=== PATIENT | female | born 1935 | race Caucasian/White ===

== ENCOUNTER 2017-06-29 21:41 | Inpatient (IN) | payer MEDICARE ==
[~2017-06-29] VITALS: Ht 152.4 cm; Wt 76.9 kg
[2017-06-29] MEDS ORDERED: SODIUM CHLORIDE 0.9% 1,000 ML IVB ONE (22:05)
[2017-06-29] MEDS ORDERED: ONDANSETRON HCL 4 MG/2 ML VIAL IV ONE (22:15)
[2017-06-29 22:24] LABS: Basophils # (auto) 0 uL; Basophils % (auto) 0.2 % (0.0-2.0); Eosinophils # (auto) 0 uL; Eosinophils % (auto) 0.2 % (0.0-7.0); Hematocrit 36.6 % (36.0-46.0); Hemoglobin 11.9 g/dL (12.2-16.2); Lymphocytes # (auto) 0.5 uL; Mean Corpuscular Hemoglobin 27.5 pg (28.0-32.0); Mean Corpuscular Hgb Conc. 32.4 g/dL (32.0-36.0); Mean Corpuscular Volume 84.8 fL (80.0-100.0); Monocytes # (auto) 0.3 uL; Monocytes % (auto) 5.2 % (0.0-12.0); Neutrophils # (auto) 5.4 uL; Neutrophils % (auto) 86.4 % (37.0-80.0); Nucleated Red Blood Cells % 0.1 %; Platelet Count (auto) 243 10^3/uL (140-450); Red Blood Cells 4.32 10^6/uL (4.0-5.20); Red Cell Distribution Width 17.9 % (11.8-14.3); White Blood Cell 6.2 10^3/uL (4.4-10.8)
[2017-06-29 22:37] LABS: Alanine Aminotransferase 28 U/L (13-56); Albumin 3.6 g/dL (3.4-5.0); Amylase 184 U/L (25-115); Anion Gap 11 (5-15); Aspartate Aminotransferase 30 U/L (15-37); BUN/Creatinine Ratio 10.9; Blood Urea Nitrogen 15 mg/dL (7-18); Calcium 9.6 mg/dL (8.5-10.1); Carbon Dioxide 23 mmol/L (21-32); Chloride 105 mmol/L (98-107); GFR African American 48 mL/min; GFR Non-African American 39 mL/min; Glucose 132 mg/dL (74-106); Magnesium 2.5 mg/dL (1.6-2.6); Potassium 3.9 mmol/L (3.5-5.1); Sodium 139 mmol/L (136-145)
[2017-06-29 22:40] LABS: INR 1.04 (0.9-1.15); Partial Thromboplastin Time 33.6 sec (22.64-33.71); Prothrombin Time 11.3 sec (9.37-12.3)
[2017-06-29 22:46] LABS: Alkaline Phosphatase 26 U/L (45-117); Bilirubin, Total 0.4 mg/dL (0.2-1.0); Lipase 4375 U/L (73-393); Total Protein 7.8 g/dL (6.4-8.2)
[2017-06-30 03:48] LABS: Urine WBC None Seen /hpf (0 - 5)
[2017-06-30 04:10] LABS: Urine Amorphous Crystal MANY /hpf (None Seen); Urine Bacteria FEW /hpf (None Seen); Urine Blood Negative /uL (Negative); Urine Specific Gravity 1.018 (1.001-1.035)
[2017-06-30] MEDS ORDERED: ONDANSETRON HCL 4 MG/2 ML VIAL IV PRN (05:30)
[2017-06-30] MEDS ORDERED: ACETAMINOPHEN 500 MG TAB PO PRN (05:30)
[2017-06-30] MEDS ORDERED: HYDROcodone-ACET 5/325MG TAB PO PRN (05:30)
[2017-06-30] MEDS ORDERED: MORPHINE SULFATE 4 MG/ML SYR/VIAL IV PRN (07:00)
[2017-06-30] MEDS: cefTRIAXone 1GM/10ml IVPUSH 10 ML IV SCH (09:32)
[2017-06-30] MEDS: metroNIDAZOLE 500MG/100ML 100 ML IV SCH ×2 (13:47→21:15)
[2017-06-30] MEDS: SODIUM CHLORIDE 0.9% 1,000 ML IV SCH (16:15)
[2017-06-30 17:39] VITALS: BP 178/71
[2017-06-30 22:00] VITALS: BP 157/74
[2017-07-01] MEDS: SODIUM CHLORIDE 0.9% 1,000 ML IV SCH ×3 (05:24→16:18)
[2017-07-01] MEDS: metroNIDAZOLE 500MG/100ML 100 ML IV SCH ×3 (05:25→22:17)
[2017-07-01 06:11] VITALS: BP 148/81
[2017-07-01 06:36] LABS: Basophils # (auto) 0 uL; Basophils % (auto) 0.6 % (0.0-2.0); Eosinophils # (auto) 0.1 uL; Eosinophils % (auto) 1.6 % (0.0-7.0); Hematocrit 34.7 % (36.0-46.0); Hemoglobin 11.1 g/dL (12.2-16.2); Lymphocytes # (auto) 0.8 uL; Mean Corpuscular Hemoglobin 27.3 pg (28.0-32.0); Mean Corpuscular Hgb Conc. 32.1 g/dL (32.0-36.0); Monocytes # (auto) 0.4 uL; Monocytes % (auto) 7.7 % (0.0-12.0); Neutrophils # (auto) 3.8 uL; Neutrophils % (auto) 75.1 % (37.0-80.0); Nucleated Red Blood Cells % 0.1 %; Platelet Count (auto) 197 10^3/uL (140-450); Red Blood Cells 4.08 10^6/uL (4.0-5.20); Red Cell Distribution Width 17.5 % (11.8-14.3); White Blood Cell 5.1 10^3/uL (4.4-10.8)
[2017-07-01 07:01] LABS: Albumin 3.1 g/dL (3.4-5.0); BUN/Creatinine Ratio 12.6; Bilirubin, Total 0.4 mg/dL (0.2-1.0); Calcium 8.1 mg/dL (8.5-10.1); Potassium 3.3 mmol/L (3.5-5.1)
[2017-07-01 08:00] VITALS: BP 161/77
[2017-07-01 09:00] VITALS: BP 161/77
[2017-07-01] MEDS: cefTRIAXone 1GM/10ml IVPUSH 10 ML IV SCH (09:37)
[2017-07-01] MEDS ORDERED: POTASSIUM CHL 20MEQ/100ML 100 ML IV ONE (10:15)
[2017-07-01 13:00] VITALS: BP 165/84
[2017-07-01 22:35] VITALS: BP 156/72
[2017-07-02] MEDS: SODIUM CHLORIDE 0.9% 1,000 ML IV SCH ×2 (00:25→08:48)
[2017-07-02 05:05] VITALS: BP 130/62
[2017-07-02] MEDS: metroNIDAZOLE 500MG/100ML 100 ML IV SCH ×2 (05:51→14:00)
[2017-07-02 06:36] LABS: Basophils # (auto) 0 uL; Basophils % (auto) 1.1 % (0.0-2.0); Eosinophils # (auto) 0.2 uL; Eosinophils % (auto) 3.8 % (0.0-7.0); Hemoglobin 10.7 g/dL (12.2-16.2); Lymphocytes # (auto) 0.7 uL; Lymphocytes % (auto) 16.7 % (10.0-50.0); Mean Corpuscular Hemoglobin 27.8 pg (28.0-32.0); Mean Corpuscular Hgb Conc. 32.6 g/dL (32.0-36.0); Mean Corpuscular Volume 85.5 fL (80.0-100.0); Monocytes # (auto) 0.4 uL; Monocytes % (auto) 9.4 % (0.0-12.0); Neutrophils # (auto) 2.8 uL; Platelet Count (auto) 179 10^3/uL (140-450); Red Blood Cells 3.86 10^6/uL (4.0-5.20); Red Cell Distribution Width 17.1 % (11.8-14.3); White Blood Cell 4.1 10^3/uL (4.4-10.8)
[2017-07-02 06:52] LABS: Potassium 3.4 mmol/L (3.5-5.1)
[2017-07-02 06:59] LABS: Albumin 2.7 g/dL (3.4-5.0); BUN/Creatinine Ratio 12.5
[2017-07-02 07:01] LABS: Bilirubin, Total 0.5 mg/dL (0.2-1.0); Total Protein 6.2 g/dL (6.4-8.2)
[2017-07-02 08:08] VITALS: BP 135/63
[2017-07-02] MEDS: cefTRIAXone 1GM/10ml IVPUSH 10 ML IV SCH (08:48)
[2017-07-02 11:55] VITALS: BP 157/86
== END 2017-07-02 14:02 | disposition home or self-care (01) | DRG 438 ==
LOC: ER 21:41 → OVERFLOW 21:42 → CENTRAL 06-30 15:28
PROVIDERS: ADMIT Nurse Practitioner Family; ATTEND Family Medicine
DX: K85.90 Acute pancreatitis without necrosis or infection, unspecified (principal); K55.019 Acute (reversible) ischemia of small intestine, extent unspecified; N17.0 Acute kidney failure with tubular necrosis; K56.600 Partial intestinal obstruction, unspecified as to cause; N39.0 Urinary tract infection, site not specified; E86.0 Dehydration; E66.9 Obesity, unspecified; E87.6 Hypokalemia; K63.89 Other specified diseases of intestine; Z90.710 Acquired absence of both cervix and uterus; Z90.49 Acquired absence of other specified parts of digestive tract; Z68.33 Body mass index [BMI] 33.0-33.9, adult
CPT/HCPCS: 36415; 71045; 74176; 80053; 81001; 82150; 83605; 83690; 83735; 83880; 84484; 85025; 85610; 85730; 86850; 86900; 86901; 87040; 87086; 93005; 94761; 96361; 96374; J2405; J3480; J3490

== ENCOUNTER 2017-09-06 09:04 | Inpatient (IN) | payer MEDICARE ==
[~2017-09-06] VITALS: Ht 152.4 cm; Wt 68.4 kg
[2017-09-06 10:14] LABS: Basophils # (auto) 0 uL; Basophils % (auto) 0.7 % (0.0-2.0); Eosinophils # (auto) 0 uL; Eosinophils % (auto) 0.3 % (0.0-7.0); Hematocrit 38.9 % (36.0-46.0); Hemoglobin 12.8 g/dL (12.2-16.2); Lymphocytes # (auto) 0.7 uL; Lymphocytes % (auto) 13.7 % (10.0-50.0); Mean Corpuscular Hemoglobin 27.6 pg (28.0-32.0); Mean Corpuscular Hgb Conc. 32.8 g/dL (32.0-36.0); Monocytes # (auto) 0.4 uL; Monocytes % (auto) 7.5 % (0.0-12.0); Neutrophils # (auto) 3.9 uL; Neutrophils % (auto) 77.8 % (37.0-80.0); Nucleated Red Blood Cells % 0.1 %; Platelet Count (auto) 172 10^3/uL (140-450); Red Blood Cells 4.63 10^6/uL (4.0-5.20); Red Cell Distribution Width 16.5 % (11.8-14.3)
[2017-09-06 10:35] LABS: Albumin 3.3 g/dL (3.4-5.0); BUN/Creatinine Ratio 32.1; Bilirubin, Total 0.6 mg/dL (0.2-1.0); Calcium 9.1 mg/dL (8.5-10.1); Magnesium 2.6 mg/dL (1.6-2.6); Potassium 3.3 mmol/L (3.5-5.1); Total Protein 7.5 g/dL (6.4-8.2)
[2017-09-06] MEDS ORDERED: ENOXAPARIN SOD 80 MG/0.8ML SYRINGE SC ONE (11:15)
[2017-09-06] MEDS ORDERED: POTASSIUM CHL 10% (20 MEQ/15ML) 15ml ORAL SOLN PO ONE (11:15)
[2017-09-06] MEDS: ISOSORBIDE DINITRATE 10 MG TAB PO SCH ×2 (12:43→17:49)
[2017-09-06] MEDS ORDERED: ACETAMINOPHEN 325 MG TAB PO PRN (12:45)
[2017-09-06] MEDS ORDERED: TRIAMTERENE/HCTZ 37.5/25 MG CAP PO ONE (12:45)
[2017-09-06] MEDS ORDERED: DOCUSATE SOD 100 MG CAP PO PRN (12:45)
[2017-09-06] MEDS ORDERED: CARVEDILOL 3.125 MG TAB PO ONE (12:45)
[2017-09-06] MEDS ORDERED: ASPirin-EC 81 mg tab PO ONE (12:45)
[2017-09-06] MEDS ORDERED: NITROGLYCERIN 0.4 MG SL TAB SL PRN (12:45)
[2017-09-06] MEDS ORDERED: MORPHINE SULFATE 8mg/ml INJ SDV IV PRN ×2 (12:45)
[2017-09-06] MEDS ORDERED: TEMAZEPAM 15 MG CAP PO PRN (12:45)
[2017-09-06] MEDS ORDERED: GASTROGRAFIN 120 ML SOL ONE (12:46)
[2017-09-06 13:00] VITALS: BP 131/77
[2017-09-06 13:03] LABS: INR 1.06 (0.9-1.15); Prothrombin Time 11.3 sec (9.27-12.13)
[2017-09-06] MEDS: SODIUM CHLORIDE 0.9% 1,000 ML IV SCH (16:39)
[2017-09-06 17:00] VITALS: BP 148/75
[2017-09-06] MEDS ORDERED: ISOS5TAB PO (17:08)
[2017-09-06] MEDS ORDERED: DYA375C PO (17:08)
[2017-09-06] MEDS: BOOST PLUS 8 ounce PO SCH (17:49)
[2017-09-06 20:00] VITALS: BP 103/53
[2017-09-06] MEDS: ATORVASTATIN 20 MG TAB PO SCH (21:43)
[2017-09-06] MEDS: CARVEDILOL 3.125 MG TAB PO SCH (21:43)
[2017-09-06 21:59] VITALS: BP 103/53
[2017-09-06] MEDS ORDERED: FAMOTIDINE 20 MG TAB PO SCH (22:00)
[2017-09-07 04:53] VITALS: BP 121/69
[2017-09-07] MEDS: SODIUM CHLORIDE 0.9% 1,000 ML IV SCH ×2 (05:27→21:33)
[2017-09-07] MEDS: ISOSORBIDE DINITRATE 10 MG TAB PO SCH ×3 (05:45→18:23)
[2017-09-07 07:10] LABS: Basophils # (auto) 0.1 uL; Basophils % (auto) 1.1 % (0.0-2.0); Eosinophils # (auto) 0 uL; Eosinophils % (auto) 0.5 % (0.0-7.0); Hematocrit 38.9 % (36.0-46.0); Hemoglobin 12.8 g/dL (12.2-16.2); Lymphocytes # (auto) 0.9 uL; Mean Corpuscular Hemoglobin 27.8 pg (28.0-32.0); Mean Corpuscular Hgb Conc. 32.9 g/dL (32.0-36.0); Mean Corpuscular Volume 84.7 fL (80.0-100.0); Monocytes # (auto) 0.5 uL; Monocytes % (auto) 8.5 % (0.0-12.0); Neutrophils % (auto) 73.9 % (37.0-80.0); Nucleated Red Blood Cells % 0.1 %; Platelet Count (auto) 200 10^3/uL (140-450); Red Blood Cells 4.59 10^6/uL (4.0-5.20); Red Cell Distribution Width 16.3 % (11.8-14.3); White Blood Cell 5.4 10^3/uL (4.4-10.8)
[2017-09-07 07:20] VITALS: BP 160/81
[2017-09-07 07:25] LABS: Albumin 3.4 g/dL (3.4-5.0); BUN/Creatinine Ratio 29.1; Bilirubin, Total 0.5 mg/dL (0.2-1.0); Calcium 9.1 mg/dL (8.5-10.1); Potassium 3.8 mmol/L (3.5-5.1); Total Protein 7.8 g/dL (6.4-8.2)
[2017-09-07] MEDS: BOOST PLUS 8 ounce PO SCH ×3 (08:00→18:24)
[2017-09-07] MEDS ORDERED: FAMOTIDINE 20 MG TAB PO SCH (10:00)
[2017-09-07] MEDS: MULTIPLE VITAMIN TAB PO SCH (10:25)
[2017-09-07] MEDS: ASPirin-EC 81 mg tab PO SCH (10:26)
[2017-09-07] MEDS: CARVEDILOL 3.125 MG TAB PO SCH ×2 (10:27→21:37)
[2017-09-07] MEDS: TRIAMTERENE/HCTZ 37.5/25 MG CAP PO SCH (10:28)
[2017-09-07 11:30] VITALS: BP 122/73
[2017-09-07 16:00] VITALS: BP 117/59
[2017-09-07 20:00] VITALS: BP 93/47
[2017-09-07] MEDS: ATORVASTATIN 20 MG TAB PO SCH (21:33)
[2017-09-07] MEDS: PANTOPRAZOLE 40 MG TAB PO SCH (21:33)
[2017-09-07 22:00] VITALS: BP 93/47
[2017-09-08] VITALS (7 sets, daily range): BP systolic 113–134; BP diastolic 51–76
[2017-09-08] MEDS: ISOSORBIDE DINITRATE 10 MG TAB PO SCH ×3 (05:56→18:26)
[2017-09-08] MEDS: BOOST PLUS 8 ounce PO SCH ×3 (08:00→18:27)
[2017-09-08] MEDS: MULTIPLE VITAMIN TAB PO SCH (10:07)
[2017-09-08] MEDS: TRIAMTERENE/HCTZ 37.5/25 MG CAP PO SCH (10:08)
[2017-09-08] MEDS: CARVEDILOL 3.125 MG TAB PO SCH (10:09)
[2017-09-08] MEDS: PANTOPRAZOLE 40 MG TAB PO SCH ×2 (10:09→21:18)
[2017-09-08] MEDS: ASPirin-EC 81 mg tab PO SCH (10:09)
[2017-09-08 11:16] LABS: Urine Bacteria FEW /hpf (None Seen); Urine Blood Negative /uL (Negative); Urine Mucus FEW (None Seen); Urine Specific Gravity 1.008 (1.001-1.035); Urine WBC 4 /hpf (0 - 5)
[2017-09-08] MEDS: SODIUM CHLORIDE 0.9% 1,000 ML IV SCH (14:40)
[2017-09-08] MEDS: ATORVASTATIN 20 MG TAB PO SCH (21:18)
[2017-09-09] VITALS (7 sets, daily range): BP systolic 117–133; BP diastolic 61–82
[2017-09-09] MEDS: ISOSORBIDE DINITRATE 10 MG TAB PO SCH ×3 (05:38→17:36)
[2017-09-09] MEDS ORDERED: fentaNYL CITRATE 100 MCG/2 ML VL ONE (08:58)
[2017-09-09] MEDS ORDERED: diphenhdrAMINE HCL 50 MG/1 ML VL ONE (08:58)
[2017-09-09] MEDS ORDERED: MIDAZOLAM HCL 5 MG/ML-1ML VIAL ONE (08:58)
[2017-09-09] MEDS ORDERED: LIDOCAINE VISCOUS 2% 15ML UD ONE (08:58)
[2017-09-09] MEDS ORDERED: SODIUM CHLORIDE LOCK 10 ML ONE (08:58)
[2017-09-09] MEDS: BOOST PLUS 8 ounce PO SCH ×3 (09:50→17:36)
[2017-09-09] MEDS: TRIAMTERENE/HCTZ 37.5/25 MG CAP PO SCH (10:30)
[2017-09-09] MEDS: ASPirin-EC 81 mg tab PO SCH (10:31)
[2017-09-09] MEDS: MULTIPLE VITAMIN TAB PO SCH (10:31)
[2017-09-09] MEDS: PANTOPRAZOLE 40 MG TAB PO SCH ×2 (10:31→21:36)
[2017-09-09] MEDS: SODIUM CHLORIDE 0.9% 1,000 ML IV SCH (10:32)
[2017-09-09] MEDS: ATORVASTATIN 20 MG TAB PO SCH (21:36)
[2017-09-10] MEDS: SODIUM CHLORIDE 0.9% 1,000 ML IV SCH ×3 (04:18→20:00)
[2017-09-10 05:00] VITALS: BP 120/59
[2017-09-10] MEDS: ISOSORBIDE DINITRATE 10 MG TAB PO SCH ×3 (05:13→18:00)
[2017-09-10] MEDS: BOOST PLUS 8 ounce PO SCH ×3 (08:00→17:37)
[2017-09-10 08:01] VITALS: BP 119/56
[2017-09-10] MEDS: ASPirin-EC 81 mg tab PO SCH (10:00)
[2017-09-10] MEDS: TRIAMTERENE/HCTZ 37.5/25 MG CAP PO SCH (10:00)
[2017-09-10] MEDS: PANTOPRAZOLE 40 MG TAB PO SCH ×2 (10:00→21:32)
[2017-09-10] MEDS: MULTIPLE VITAMIN TAB PO SCH (10:00)
[2017-09-10 11:47] VITALS: BP 126/58
[2017-09-10 16:35] VITALS: BP 140/69
[2017-09-10] MEDS: ATORVASTATIN 20 MG TAB PO SCH (21:32)
[2017-09-10] MEDS: ONDANSETRON HCL 4 MG/2 ML VIAL IV PRN (21:32)
[2017-09-10 21:37] VITALS: BP 145/73
[2017-09-10] MEDS ORDERED: MORPHINE SULFATE 4 MG/ML SYR/VIAL IV PRN (22:00)
[2017-09-11 04:35] VITALS: BP 125/63
[2017-09-11] MEDS: ISOSORBIDE DINITRATE 10 MG TAB PO SCH ×3 (06:02→18:00)
[2017-09-11 08:00] VITALS: BP 116/50
[2017-09-11] MEDS: BOOST PLUS 8 ounce PO SCH ×3 (08:00→18:00)
[2017-09-11 08:26] VITALS: BP 116/50
[2017-09-11] MEDS: TRIAMTERENE/HCTZ 37.5/25 MG CAP PO SCH (10:00)
[2017-09-11] MEDS: MULTIPLE VITAMIN TAB PO SCH (10:57)
[2017-09-11] MEDS: PANTOPRAZOLE 40 MG TAB PO SCH ×2 (10:57→21:06)
[2017-09-11] MEDS: ASPirin-EC 81 mg tab PO SCH (10:57)
[2017-09-11 11:44] VITALS: BP 132/59
[2017-09-11 16:59] VITALS: BP 119/61
[2017-09-11] MEDS: ATORVASTATIN 20 MG TAB PO SCH (21:06)
[2017-09-11 22:00] VITALS: BP 118/86
[2017-09-12] MEDS: SODIUM CHLORIDE 0.9% 1,000 ML IV SCH ×2 (01:33→19:39)
[2017-09-12 05:00] VITALS: BP_SYST 115
[2017-09-12] MEDS: ISOSORBIDE DINITRATE 10 MG TAB PO SCH ×3 (06:01→18:00)
[2017-09-12 08:00] VITALS: BP 135/67
[2017-09-12] MEDS: BOOST PLUS 8 ounce PO SCH ×3 (08:00→18:00)
[2017-09-12] MEDS: ASPirin-EC 81 mg tab PO SCH (11:06)
[2017-09-12] MEDS: PANTOPRAZOLE 40 MG TAB PO SCH ×2 (11:06→21:52)
[2017-09-12] MEDS: TRIAMTERENE/HCTZ 37.5/25 MG CAP PO SCH (11:06)
[2017-09-12] MEDS: MULTIPLE VITAMIN TAB PO SCH (11:06)
[2017-09-12 12:00] VITALS: BP 121/58
[2017-09-12] MEDS ORDERED: NEOSTIGMINE 1 MG/ML INJ (10mg/10ML VIAL) IV SCH (14:00)
[2017-09-12 14:41] LABS: Basophils # (auto) 0.1 uL; Basophils % (auto) 1.1 % (0.0-2.0); Eosinophils # (auto) 0.1 uL; Eosinophils % (auto) 2.1 % (0.0-7.0); Hematocrit 38.2 % (36.0-46.0); Hemoglobin 12.2 g/dL (12.2-16.2); Lymphocytes % (auto) 20.3 % (10.0-50.0); Mean Corpuscular Hemoglobin 27.6 pg (28.0-32.0); Mean Corpuscular Hgb Conc. 31.9 g/dL (32.0-36.0); Mean Corpuscular Volume 86.5 fL (80.0-100.0); Monocytes # (auto) 0.3 uL; Monocytes % (auto) 6.9 % (0.0-12.0); Neutrophils # (auto) 3.5 uL; Neutrophils % (auto) 69.6 % (37.0-80.0); Nucleated Red Blood Cells % 0.1 %; Platelet Count (auto) 160 10^3/uL (140-450); Red Blood Cells 4.42 10^6/uL (4.0-5.20); Red Cell Distribution Width 16.9 % (11.8-14.3)
[2017-09-12 15:00] VITALS: BP 137/75
[2017-09-12 15:22] LABS: BUN/Creatinine Ratio 13.9; Bilirubin, Total 0.6 mg/dL (0.2-1.0); Calcium 8.6 mg/dL (8.5-10.1); Potassium 3.7 mmol/L (3.5-5.1); Total Protein 6.9 g/dL (6.4-8.2)
[2017-09-12] MEDS: ONDANSETRON HCL 4 MG/2 ML VIAL IV PRN (19:34)
[2017-09-12] MEDS: NEOSTIGMINE 1 MG/ML INJ (10mg/10ML VIAL) IV SCH ×3 (19:37→22:00)
[2017-09-12] MEDS: ATORVASTATIN 20 MG TAB PO SCH (21:52)
[2017-09-12 22:00] VITALS: BP 116/60
[2017-09-13] MEDS: NEOSTIGMINE 1 MG/ML INJ (10mg/10ML VIAL) IV SCH ×3 (02:48→10:11)
[2017-09-13] MEDS: ONDANSETRON HCL 4 MG/2 ML VIAL IV PRN ×2 (03:11→10:42)
[2017-09-13 05:00] VITALS: BP 127/73
[2017-09-13] MEDS: ISOSORBIDE DINITRATE 10 MG TAB PO SCH ×3 (06:10→19:38)
[2017-09-13 08:00] VITALS: BP 106/54
[2017-09-13 08:48] VITALS: BP 106/54
[2017-09-13] MEDS: TRIAMTERENE/HCTZ 37.5/25 MG CAP PO SCH (10:00)
[2017-09-13] MEDS: PANTOPRAZOLE 40 MG TAB PO SCH ×2 (10:10→22:07)
[2017-09-13] MEDS: ASPirin-EC 81 mg tab PO SCH (10:10)
[2017-09-13] MEDS: MULTIPLE VITAMIN TAB PO SCH (10:10)
[2017-09-13] MEDS: BOOST PLUS 8 ounce PO SCH ×3 (10:11→18:00)
[2017-09-13] MEDS: SODIUM CHLORIDE 0.9% 1,000 ML IV SCH (12:52)
[2017-09-13 13:07] VITALS: BP 138/67
[2017-09-13] MEDS: METOCLOPRAMIDE HCL 5MG/ml INJ 2ml VIAL IV SCH ×2 (13:59→22:07)
[2017-09-13 16:57] VITALS: BP 133/76
[2017-09-13 21:08] VITALS: BP 128/65
[2017-09-13] MEDS: ATORVASTATIN 20 MG TAB PO SCH (22:07)
[2017-09-14] MEDS: SODIUM CHLORIDE 0.9% 1,000 ML IV SCH ×2 (04:12→20:40)
[2017-09-14 04:57] VITALS: BP 139/69
[2017-09-14] MEDS: ISOSORBIDE DINITRATE 10 MG TAB PO SCH ×3 (05:53→18:00)
[2017-09-14] MEDS: METOCLOPRAMIDE HCL 5MG/ml INJ 2ml VIAL IV SCH ×4 (05:53→22:59)
[2017-09-14] MEDS: BOOST PLUS 8 ounce PO SCH ×3 (08:00→18:00)
[2017-09-14 09:00] VITALS: BP 152/75
[2017-09-14] MEDS: MULTIPLE VITAMIN TAB PO SCH (09:44)
[2017-09-14] MEDS: PANTOPRAZOLE 40 MG TAB PO SCH ×3 (09:44→23:00)
[2017-09-14] MEDS: ASPirin-EC 81 mg tab PO SCH (09:44)
[2017-09-14] MEDS: TRIAMTERENE/HCTZ 37.5/25 MG CAP PO SCH (09:44)
[2017-09-14] MEDS: ONDANSETRON HCL 4 MG/2 ML VIAL IV PRN ×2 (09:44→17:30)
[2017-09-14] MEDS: HYDROcodone-ACET 5/325MG TAB PO PRN ×2 (09:45→17:30)
[2017-09-14 12:15] LABS: Hematocrit 37.9 % (36.0-46.0); Hemoglobin 12.5 g/dL (12.2-16.2); Mean Corpuscular Hemoglobin 27.7 pg (28.0-32.0); Mean Corpuscular Hgb Conc. 33.1 g/dL (32.0-36.0); Mean Corpuscular Volume 83.6 fL (80.0-100.0); Platelet Count (auto) 177 10^3/uL (140-450); Red Blood Cells 4.53 10^6/uL (4.0-5.20); Red Cell Distribution Width 17.1 % (11.8-14.3); White Blood Cell 7.7 10^3/uL (4.4-10.8)
[2017-09-14 12:20] LABS: Band Neutrophils % (manual) 0; Basophils % (manual) 0 (0.0-2.0); Blast Cells 0; Eosinophils % (manual) 0 (0-7); Metamyelocytes % 0; Myelocytes % 0; Promyelocytes % 0; Reactive Lymphocytes 0
[2017-09-14 12:30] LABS: Lymphocytes % (manual) 4 (10.0-50.0); Monocytes % (manual) 12 (0-12)
[2017-09-14 12:40] LABS: Albumin 3.1 g/dL (3.4-5.0); BUN/Creatinine Ratio 8.1; Bilirubin, Total 0.4 mg/dL (0.2-1.0); Calcium 8.3 mg/dL (8.5-10.1); Potassium 3.3 mmol/L (3.5-5.1); Total Protein 7.1 g/dL (6.4-8.2)
[2017-09-14 13:00] VITALS: BP 152/75
[2017-09-14] MEDS ORDERED: HYDROmorphone HCL 2 MG/ML VL IV PRN (13:30)
[2017-09-14 17:00] VITALS: BP 144/79
[2017-09-14 21:06] VITALS: BP 140/59
[2017-09-14] MEDS: ATORVASTATIN 20 MG TAB PO SCH ×2 (22:00→22:59)
[2017-09-15 05:02] VITALS: BP 152/73
[2017-09-15] MEDS: METOCLOPRAMIDE HCL 5MG/ml INJ 2ml VIAL IV SCH ×3 (05:34→22:05)
[2017-09-15] MEDS: ISOSORBIDE DINITRATE 10 MG TAB PO SCH ×2 (05:35→12:40)
[2017-09-15 05:58] LABS: Basophils # (auto) 0 uL; Basophils % (auto) 0.7 % (0.0-2.0); Eosinophils # (auto) 0.1 uL; Hemoglobin 12.9 g/dL (12.2-16.2); Lymphocytes # (auto) 0.8 uL; Lymphocytes % (auto) 10.6 % (10.0-50.0); Mean Corpuscular Hemoglobin 28.1 pg (28.0-32.0); Mean Corpuscular Hgb Conc. 33.2 g/dL (32.0-36.0); Mean Corpuscular Volume 84.6 fL (80.0-100.0); Monocytes # (auto) 0.8 uL; Neutrophils # (auto) 5.9 uL; Neutrophils % (auto) 77.7 % (37.0-80.0); Nucleated Red Blood Cells % 0.1 %; Platelet Count (auto) 183 10^3/uL (140-450); Red Blood Cells 4.61 10^6/uL (4.0-5.20); Red Cell Distribution Width 17.3 % (11.8-14.3); White Blood Cell 7.6 10^3/uL (4.4-10.8)
[2017-09-15 06:13] LABS: Albumin 3.2 g/dL (3.4-5.0); BUN/Creatinine Ratio 8.7; Bilirubin, Total 0.4 mg/dL (0.2-1.0); Calcium 8.9 mg/dL (8.5-10.1); Potassium 3.3 mmol/L (3.5-5.1); Total Protein 7.2 g/dL (6.4-8.2)
[2017-09-15] MEDS: BOOST PLUS 8 ounce PO SCH ×3 (08:44→17:52)
[2017-09-15 08:56] VITALS: BP 150/73
[2017-09-15] MEDS: MULTIPLE VITAMIN TAB PO SCH (09:52)
[2017-09-15] MEDS: ASPirin-EC 81 mg tab PO SCH (09:52)
[2017-09-15] MEDS: PANTOPRAZOLE 40 MG TAB PO SCH (09:52)
[2017-09-15] MEDS: TRIAMTERENE/HCTZ 37.5/25 MG CAP PO SCH (09:52)
[2017-09-15 13:00] VITALS: BP 154/72
[2017-09-15] MEDS ORDERED: POTASSIUM CHL 10% (20 MEQ/15ML) 15ml ORAL SOLN GT ONE (13:00)
[2017-09-15] MEDS ORDERED: HYDROcodone-ACET 5/325MG TAB NG PRN (16:15)
[2017-09-15] MEDS ORDERED: DOCUSATE ORAL LIQUID 100 MG/10 ML UD NG PRN (16:15)
[2017-09-15] MEDS ORDERED: ACETAMINOPHEN 650 mg PER 20 mL UD NG PRN (16:15)
[2017-09-15 17:00] VITALS: BP 149/70
[2017-09-15] MEDS: SODIUM CHLORIDE 0.9% 1,000 ML IV SCH (17:52)
[2017-09-15] MEDS: ISOSORBIDE DINITRATE 10 MG TAB NG SCH (17:52)
[2017-09-15 22:00] VITALS: BP 147/74
[2017-09-15] MEDS: ATORVASTATIN 20 MG TAB NG SCH (22:05)
[2017-09-15] MEDS: OMEPRAZOLE 20MG/10ML ORAL SUSP NG SCH (22:06)
[2017-09-16 05:00] VITALS: BP 145/69
[2017-09-16] MEDS: METOCLOPRAMIDE HCL 5MG/ml INJ 2ml VIAL IV SCH ×3 (05:31→21:42)
[2017-09-16] MEDS: ISOSORBIDE DINITRATE 10 MG TAB NG SCH ×3 (05:32→17:45)
[2017-09-16] MEDS: SODIUM CHLORIDE 0.9% 1,000 ML IV SCH ×2 (05:57→22:40)
[2017-09-16 06:50] LABS: Basophils # (auto) 0 uL; Basophils % (auto) 0.3 % (0.0-2.0); Eosinophils # (auto) 0.1 uL; Eosinophils % (auto) 1.2 % (0.0-7.0); Hematocrit 36.1 % (36.0-46.0); Hemoglobin 11.8 g/dL (12.2-16.2); Lymphocytes # (auto) 0.5 uL; Lymphocytes % (auto) 9.6 % (10.0-50.0); Mean Corpuscular Hemoglobin 27.7 pg (28.0-32.0); Mean Corpuscular Hgb Conc. 32.8 g/dL (32.0-36.0); Mean Corpuscular Volume 84.5 fL (80.0-100.0); Monocytes # (auto) 0.6 uL; Monocytes % (auto) 11.5 % (0.0-12.0); Neutrophils # (auto) 4.1 uL; Neutrophils % (auto) 77.4 % (37.0-80.0); Platelet Count (auto) 154 10^3/uL (140-450); Red Blood Cells 4.27 10^6/uL (4.0-5.20); Red Cell Distribution Width 17.6 % (11.8-14.3); White Blood Cell 5.3 10^3/uL (4.4-10.8)
[2017-09-16 07:13] LABS: Albumin 2.7 g/dL (3.4-5.0); BUN/Creatinine Ratio 14.5; Bilirubin, Total 0.5 mg/dL (0.2-1.0); Calcium 8.4 mg/dL (8.5-10.1); Potassium 3.2 mmol/L (3.5-5.1); Total Protein 6.4 g/dL (6.4-8.2)
[2017-09-16 08:00] VITALS: BP 151/75
[2017-09-16] MEDS: BOOST PLUS 8 ounce PO SCH ×3 (08:00→18:00)
[2017-09-16] MEDS: ASPirin-EC 81 mg tab PO SCH (09:00)
[2017-09-16] MEDS: MULTIPLE VITAMIN TAB NG SCH (09:00)
[2017-09-16] MEDS: OMEPRAZOLE 20MG/10ML ORAL SUSP NG SCH ×2 (09:01→21:42)
[2017-09-16] MEDS: TRIAMTERENE/HCTZ 37.5/25 MG CAP PO SCH (09:01)
[2017-09-16] MEDS: POTASSIUM CHL 10% (20 MEQ/15ML) 15ml ORAL SOLN GT SCH (09:02)
[2017-09-16 11:00] VITALS: BP 151/71
[2017-09-16] MEDS ORDERED: GASTROGRAFIN 120 ML SOL ONE (11:10)
[2017-09-16] MEDS ORDERED: PANTOPRAZOLE 40 MG/10 ML VIAL IV ONE (14:30)
[2017-09-16] MEDS ORDERED: PANTOPRAZOLE 80 MG in SODIUM CHL 0.9% 60 ML IV SCH (14:30)
[2017-09-16 15:00] VITALS: BP 146/67
[2017-09-16] MEDS ORDERED: CLINIMIX PER PHARMACY 0 ML IV SCH (15:00)
[2017-09-16 17:22] LABS: Magnesium 2.1 mg/dL (1.6-2.6); Phosphorus 3.7 mg/dL (2.5-4.90)
[2017-09-16] MEDS ORDERED: ACCU-CHEK COMFORT CURVE STRIP VI SCH (18:00)
[2017-09-16] MEDS ORDERED: DEXTROSE (50%) 50ML SYRG IV PRN (18:00)
[2017-09-16] MEDS ORDERED: InsuLIN REG 1unit/0.01ml Soln (100units/ml) SC SCH (18:00)
[2017-09-16] MEDS: InsuLIN REG 1unit/0.01ml Soln (100units/ml) SC SCH (18:30)
[2017-09-16] MEDS: ACCU-CHEK COMFORT CURVE STRIP VI SCH (18:30)
[2017-09-16] MEDS ORDERED: DEXTROSE (50%) 50ML SYRG IV SCH (18:30)
[2017-09-16] MEDS ORDERED: POTASSIUM CHL 10% (20 MEQ/15ML) 15ml ORAL SOLN GT ONE (18:35)
[2017-09-16] MEDS: AMINO ACID INFUSION IN D10W 1,000 ML IV NR (20:00)
[2017-09-16] MEDS: ATORVASTATIN 20 MG TAB NG SCH (21:42)
[2017-09-16 22:00] VITALS: BP 153/78
[2017-09-17] MEDS: ACCU-CHEK COMFORT CURVE STRIP VI SCH ×4 (00:01→18:18)
[2017-09-17 05:00] VITALS: BP 142/70
[2017-09-17 05:26] LABS: Basophils # (auto) 0 uL; Basophils % (auto) 0.4 % (0.0-2.0); Eosinophils # (auto) 0.1 uL; Eosinophils % (auto) 1.9 % (0.0-7.0); Hematocrit 33.2 % (36.0-46.0); Lymphocytes # (auto) 0.5 uL; Lymphocytes % (auto) 13.2 % (10.0-50.0); Mean Corpuscular Hemoglobin 27.9 pg (28.0-32.0); Mean Corpuscular Hgb Conc. 33.3 g/dL (32.0-36.0); Monocytes # (auto) 0.6 uL; Monocytes % (auto) 16.1 % (0.0-12.0); Neutrophils # (auto) 2.6 uL; Neutrophils % (auto) 68.4 % (37.0-80.0); Nucleated Red Blood Cells % 0.1 %; Platelet Count (auto) 152 10^3/uL (140-450); Red Blood Cells 3.96 10^6/uL (4.0-5.20); Red Cell Distribution Width 17.9 % (11.8-14.3); White Blood Cell 3.8 10^3/uL (4.4-10.8)
[2017-09-17] MEDS: METOCLOPRAMIDE HCL 5MG/ml INJ 2ml VIAL IV SCH ×4 (05:35→23:51)
[2017-09-17] MEDS: ISOSORBIDE DINITRATE 10 MG TAB NG SCH ×3 (05:36→18:21)
[2017-09-17] MEDS: InsuLIN REG 1unit/0.01ml Soln (100units/ml) SC SCH ×4 (05:46→18:00)
[2017-09-17 06:40] LABS: Albumin 2.5 g/dL (3.4-5.0); BUN/Creatinine Ratio 18.6; Bilirubin, Total 0.4 mg/dL (0.2-1.0); Calcium 8.2 mg/dL (8.5-10.1); Magnesium 2.3 mg/dL (1.6-2.6); Phosphorus 2.6 mg/dL (2.5-4.90); Potassium 3.2 mmol/L (3.5-5.1); Pre Albumin 6.4 mg/dL (20.0-40.0)
[2017-09-17 07:37] VITALS: BP 124/67
[2017-09-17] MEDS: BOOST PLUS 8 ounce PO SCH ×3 (08:00→18:00)
[2017-09-17] MEDS ORDERED: POTASSIUM PHOSP 22MEQ(15MMOLE) in NS 100 ML IV ONE (10:00)
[2017-09-17] MEDS: POTASSIUM CHL 10% (20 MEQ/15ML) 15ml ORAL SOLN GT SCH (10:35)
[2017-09-17] MEDS: SODIUM CHLORIDE 0.9% 1,000 ML IV SCH (10:35)
[2017-09-17] MEDS: MULTIPLE VITAMIN TAB NG SCH (10:36)
[2017-09-17] MEDS: ASPirin-EC 81 mg tab PO SCH (10:36)
[2017-09-17] MEDS: OMEPRAZOLE 20MG/10ML ORAL SUSP NG SCH (10:36)
[2017-09-17] MEDS: TRIAMTERENE/HCTZ 37.5/25 MG CAP PO SCH (10:36)
[2017-09-17 13:00] VITALS: BP 158/77
[2017-09-17 16:28] VITALS: BP 143/72
[2017-09-17] MEDS: AMINO ACID INFUSION IN D10W 1,000 ML IV NR (19:49)
[2017-09-17] MEDS ORDERED: PPN PER PHARMACY IV NR ×8 (20:00)
[2017-09-17 22:42] VITALS: BP 136/68
[2017-09-17] MEDS: PANTOPRAZOLE 40 MG/10 ML VIAL IV SCH (23:51)
[2017-09-17] MEDS: ATORVASTATIN 20 MG TAB NG SCH (23:52)
[2017-09-18] MEDS: ACCU-CHEK COMFORT CURVE STRIP VI SCH ×4 (00:28→18:22)
[2017-09-18 05:52] VITALS: BP 136/73
[2017-09-18] MEDS: InsuLIN REG 1unit/0.01ml Soln (100units/ml) SC SCH ×4 (06:00→18:00)
[2017-09-18 06:31] LABS: Basophils # (auto) 0 uL; Basophils % (auto) 0.5 % (0.0-2.0); Eosinophils # (auto) 0.2 uL; Eosinophils % (auto) 3.3 % (0.0-7.0); Hematocrit 34.1 % (36.0-46.0); Hemoglobin 11.5 g/dL (12.2-16.2); Lymphocytes # (auto) 0.7 uL; Lymphocytes % (auto) 15.7 % (10.0-50.0); Mean Corpuscular Hemoglobin 28.3 pg (28.0-32.0); Mean Corpuscular Hgb Conc. 33.7 g/dL (32.0-36.0); Monocytes # (auto) 0.5 uL; Monocytes % (auto) 11.6 % (0.0-12.0); Neutrophils # (auto) 3.2 uL; Neutrophils % (auto) 68.9 % (37.0-80.0); Platelet Count (auto) 145 10^3/uL (140-450); Red Blood Cells 4.06 10^6/uL (4.0-5.20); White Blood Cell 4.6 10^3/uL (4.4-10.8)
[2017-09-18 06:46] LABS: Magnesium 2.2 mg/dL (1.6-2.6); Phosphorus 2.6 mg/dL (2.5-4.90); Potassium 3.2 mmol/L (3.5-5.1)
[2017-09-18] MEDS: METOCLOPRAMIDE HCL 5MG/ml INJ 2ml VIAL IV SCH ×3 (07:00→22:20)
[2017-09-18] MEDS: ISOSORBIDE DINITRATE 10 MG TAB NG SCH ×3 (07:01→18:00)
[2017-09-18 08:00] VITALS: BP 136/73
[2017-09-18 09:00] VITALS: BP 149/72
[2017-09-18] MEDS ORDERED: POTASSIUM CHL 10% (20 MEQ/15ML) 15ml ORAL SOLN GT ONE ×2 (09:30→11:15)
[2017-09-18] MEDS: SODIUM CHLORIDE 0.9% 1,000 ML IV SCH ×2 (11:02→20:00)
[2017-09-18] MEDS: BOOST PLUS 8 ounce PO SCH ×3 (11:03→18:22)
[2017-09-18 11:12] LABS: INR 1.06 (0.9-1.15); Partial Thromboplastin Time 28.7 sec (23.78-33.04); Prothrombin Time 11.3 sec (9.27-12.13)
[2017-09-18] MEDS: PANTOPRAZOLE 40 MG/10 ML VIAL IV SCH ×2 (11:35→22:19)
[2017-09-18] MEDS: MULTIPLE VITAMIN TAB NG SCH (11:35)
[2017-09-18] MEDS: TRIAMTERENE/HCTZ 37.5/25 MG CAP PO SCH (11:36)
[2017-09-18 13:00] VITALS: BP 153/68
[2017-09-18] MEDS ORDERED: LIDOCAINE 1% (LOCAL ANESTH.) PF 5ml SDV ID ONE (14:30)
[2017-09-18] MEDS ORDERED: POTASSIUM CHL 10% (20 MEQ/15ML) 15ml ORAL SOLN PO ONE (15:00)
[2017-09-18 17:00] VITALS: BP 132/69
[2017-09-18] MEDS ORDERED: PPN PER PHARMACY IV NR ×9 (20:00)
[2017-09-18 22:00] VITALS: BP 155/69
[2017-09-18] MEDS: ATORVASTATIN 20 MG TAB NG SCH (22:19)
[2017-09-18] MEDS: SODIUM CHLOR 0.9% PF (SALINE LOCK) 10ML VIAL/SYR IV SCH (22:19)
[2017-09-19] MEDS: ACCU-CHEK COMFORT CURVE STRIP VI SCH ×4 (00:08→18:47)
[2017-09-19 05:13] VITALS: BP 144/74
[2017-09-19] MEDS: ISOSORBIDE DINITRATE 10 MG TAB NG SCH ×3 (06:00→18:00)
[2017-09-19] MEDS: METOCLOPRAMIDE HCL 5MG/ml INJ 2ml VIAL IV SCH ×3 (06:00→23:12)
[2017-09-19] MEDS: InsuLIN REG 1unit/0.01ml Soln (100units/ml) SC SCH ×4 (06:00→18:47)
[2017-09-19 07:59] VITALS: BP 144/74
[2017-09-19] MEDS: BOOST PLUS 8 ounce PO SCH ×3 (08:00→18:00)
[2017-09-19 08:10] LABS: Albumin 2.6 g/dL (3.4-5.0); BUN/Creatinine Ratio 21.1; Bilirubin, Total 0.4 mg/dL (0.2-1.0); Calcium 8.5 mg/dL (8.5-10.1); Magnesium 2.2 mg/dL (1.6-2.6); Phosphorus 2.6 mg/dL (2.5-4.90); Total Protein 6.5 g/dL (6.4-8.2)
[2017-09-19 09:00] VITALS: BP 124/72
[2017-09-19] MEDS: MULTIPLE VITAMIN TAB NG SCH (10:00)
[2017-09-19] MEDS ORDERED: POTASSIUM CHL 10% (20 MEQ/15ML) 15ml ORAL SOLN GT SCH (10:00)
[2017-09-19] MEDS: TRIAMTERENE/HCTZ 37.5/25 MG CAP PO SCH (10:00)
[2017-09-19] MEDS ORDERED: TPN PER PHARMACY 0 ML IV SCH (10:45)
[2017-09-19] MEDS: PANTOPRAZOLE 40 MG/10 ML VIAL IV SCH ×2 (12:06→23:12)
[2017-09-19] MEDS: SODIUM CHLOR 0.9% PF (SALINE LOCK) 10ML VIAL/SYR IV SCH ×2 (12:06→23:12)
[2017-09-19 13:00] VITALS: BP 140/71
[2017-09-19 16:54] VITALS: BP 145/70
[2017-09-19] MEDS ORDERED: TPN PER PHARMACY IV NR ×11 (20:00)
[2017-09-19] MEDS: SODIUM CHLORIDE 0.9% 1,000 ML IV SCH (20:55)
[2017-09-19 22:08] VITALS: BP 142/67
[2017-09-19] MEDS: ATORVASTATIN 20 MG TAB NG SCH (23:12)
[2017-09-20] MEDS: InsuLIN REG 1unit/0.01ml Soln (100units/ml) SC SCH ×4 (01:00→18:00)
[2017-09-20] MEDS: ACCU-CHEK COMFORT CURVE STRIP VI SCH ×4 (01:00→18:27)
[2017-09-20 04:38] VITALS: BP 150/60
[2017-09-20] MEDS: ISOSORBIDE DINITRATE 10 MG TAB NG SCH ×3 (05:58→19:02)
[2017-09-20] MEDS: METOCLOPRAMIDE HCL 5MG/ml INJ 2ml VIAL IV SCH ×3 (05:58→22:43)
[2017-09-20 07:00] LABS: Albumin 2.4 g/dL (3.4-5.0); BUN/Creatinine Ratio 28.8; Bilirubin, Total 0.3 mg/dL (0.2-1.0); Calcium 8.3 mg/dL (8.5-10.1); Magnesium 2.1 mg/dL (1.6-2.6); Phosphorus 3.6 mg/dL (2.5-4.90); Potassium 4.3 mmol/L (3.5-5.1); Total Protein 6.1 g/dL (6.4-8.2)
[2017-09-20] MEDS: BOOST PLUS 8 ounce PO SCH ×3 (08:00→18:00)
[2017-09-20 08:38] VITALS: BP 116/73
[2017-09-20] MEDS: TRIAMTERENE/HCTZ 37.5/25 MG CAP PO SCH (10:00)
[2017-09-20] MEDS: MULTIPLE VITAMIN TAB NG SCH (10:00)
[2017-09-20] MEDS: PANTOPRAZOLE 40 MG/10 ML VIAL IV SCH ×2 (10:54→22:45)
[2017-09-20] MEDS: SODIUM CHLOR 0.9% PF (SALINE LOCK) 10ML VIAL/SYR IV SCH ×2 (10:55→22:49)
[2017-09-20] MEDS ORDERED: diphenhdrAMINE HCL 50 MG/1 ML VL ONE (12:04)
[2017-09-20] MEDS ORDERED: LIDOCAINE VISCOUS 2% 15ML UD ONE (12:04)
[2017-09-20] MEDS ORDERED: fentaNYL CITRATE 100 MCG/2 ML VL ONE (12:04)
[2017-09-20] MEDS ORDERED: SODIUM CHLORIDE LOCK 10 ML ONE (12:04)
[2017-09-20] MEDS: MIDAZOLAM HCL 5 MG/ML-1ML VIAL ONE ×2 (12:12→12:19)
[2017-09-20 13:02] VITALS: BP 131/74
[2017-09-20 17:00] VITALS: BP 120/69
[2017-09-20] MEDS ORDERED: TPN PER PHARMACY IV NR ×11 (20:00)
[2017-09-20 22:00] VITALS: BP 141/76
[2017-09-20] MEDS: ATORVASTATIN 20 MG TAB NG SCH (22:46)
[2017-09-21] MEDS: SODIUM CHLORIDE 0.9% 1,000 ML IV SCH ×2 (00:48→10:34)
[2017-09-21] MEDS: ACCU-CHEK COMFORT CURVE STRIP VI SCH ×5 (00:49→23:50)
[2017-09-21 05:00] VITALS: BP 147/72
[2017-09-21 05:59] LABS: INR 1.04 (0.9-1.15); Partial Thromboplastin Time 36.4 sec (23.78-33.04); Prothrombin Time 11.1 sec (9.27-12.13)
[2017-09-21] MEDS: InsuLIN REG 1unit/0.01ml Soln (100units/ml) SC SCH ×5 (06:00→23:56)
[2017-09-21 06:10] LABS: Albumin 2.2 g/dL (3.4-5.0); BUN/Creatinine Ratio 35.8; Bilirubin, Total 0.4 mg/dL (0.2-1.0); Calcium 8.1 mg/dL (8.5-10.1); Magnesium 2.3 mg/dL (1.6-2.6); Potassium 4.4 mmol/L (3.5-5.1); Total Protein 5.8 g/dL (6.4-8.2)
[2017-09-21] MEDS: METOCLOPRAMIDE HCL 5MG/ml INJ 2ml VIAL IV SCH ×3 (06:37→22:00)
[2017-09-21] MEDS: ISOSORBIDE DINITRATE 10 MG TAB NG SCH ×3 (06:39→18:12)
[2017-09-21] MEDS: BOOST PLUS 8 ounce PO SCH ×3 (07:54→18:00)
[2017-09-21 08:53] VITALS: BP 140/77
[2017-09-21] MEDS: SODIUM CHLOR 0.9% PF (SALINE LOCK) 10ML VIAL/SYR IV SCH ×2 (09:42→22:00)
[2017-09-21] MEDS: PANTOPRAZOLE 40 MG/10 ML VIAL IV SCH ×2 (09:42→22:00)
[2017-09-21] MEDS: MULTIPLE VITAMIN TAB NG SCH (09:42)
[2017-09-21] MEDS: TRIAMTERENE/HCTZ 37.5/25 MG CAP PO SCH (11:56)
[2017-09-21] MEDS ORDERED: ceFAZolin 1GM/100ML 50 ML IV ONE (12:34)
[2017-09-21 13:00] VITALS: BP 150/69
[2017-09-21] MEDS ORDERED: fentaNYL CITRATE 100 MCG/2 ML VL IV ONE ×2 (13:15→16:00)
[2017-09-21] MEDS ORDERED: MEPERIDINE HCL (50 MG/ML) 1 ML VIAL IV ONE (13:15)
[2017-09-21] MEDS ORDERED: ROCURONIUM 10MG/ML 10ML VIAL IV ONE (14:02)
[2017-09-21] MEDS ORDERED: MIDAZOLAM HCL 1MG/1ML-2 ML VIAL ONE (14:03)
[2017-09-21] MEDS ORDERED: NEOSTIGMINE 1 MG/ML INJ (10mg/10ML VIAL) ONE (14:52)
[2017-09-21] MEDS ORDERED: GLYCOPYRROLATE 0.2 MG/ML 1ML VIAL ONE (14:54)
[2017-09-21] MEDS ORDERED: MEPERIDINE HCL (50 MG/ML) 1 ML VIAL ONE (15:37)
[2017-09-21] MEDS ORDERED: KETOROLAC TROMETH 30 MG/ML 1ML VIAL ONE (15:37)
[2017-09-21] MEDS ORDERED: ONDANSETRON HCL 4 MG/2 ML VIAL ONE (15:37)
[2017-09-21] MEDS ORDERED: ONDANSETRON HCL 4 MG/2 ML VIAL IV ONE ×2 (15:45→16:00)
[2017-09-21] MEDS ORDERED: MEPERIDINE HCL (50 MG/ML) 1 ML VIAL IM ONE (15:45)
[2017-09-21] MEDS ORDERED: KETOROLAC TROMETH 30 MG/ML 1ML VIAL IV ONE ×2 (15:45→16:00)
[2017-09-21] MEDS ORDERED: HYDROmorphone HCL 2 MG/ML VL IV PRN (16:00)
[2017-09-21] MEDS ORDERED: LABETALOL HCL 5 MG/ML 4ML SYRINGE IV PRN (16:00)
[2017-09-21] MEDS ORDERED: ePHEDrine SULFATE 50 MG/ML AMP IV PRN (16:00)
[2017-09-21] MEDS ORDERED: MORPHINE SULFATE 8mg/ml INJ SDV IV ONE (16:00)
[2017-09-21] MEDS ORDERED: MIDAZOLAM HCL 1MG/1ML-2 ML VIAL IV PRN (16:00)
[2017-09-21] MEDS ORDERED: MORPHINE SULFATE 8mg/ml INJ SDV IV PRN (16:00)
[2017-09-21 17:00] VITALS: BP 122/69
[2017-09-21] MEDS ORDERED: TPN PER PHARMACY IV NR ×11 (20:00)
[2017-09-21 22:00] VITALS: BP 116/68
[2017-09-21] MEDS: ATORVASTATIN 20 MG TAB NG SCH (22:00)
[2017-09-22] MEDS: METOCLOPRAMIDE HCL 5MG/ml INJ 2ml VIAL IV SCH ×3 (05:35→21:55)
[2017-09-22] MEDS: ISOSORBIDE DINITRATE 10 MG TAB NG SCH ×3 (05:41→19:00)
[2017-09-22 05:54] VITALS: BP 128/72
[2017-09-22] MEDS: ACCU-CHEK COMFORT CURVE STRIP VI SCH ×3 (05:58→18:22)
[2017-09-22] MEDS: InsuLIN REG 1unit/0.01ml Soln (100units/ml) SC SCH ×3 (05:59→18:00)
[2017-09-22 08:00] VITALS: BP 137/74
[2017-09-22] MEDS: BOOST PLUS 8 ounce PO SCH ×3 (08:00→18:00)
[2017-09-22 09:00] VITALS: BP 137/74
[2017-09-22] MEDS: SODIUM CHLORIDE 0.9% 1,000 ML IV SCH ×2 (09:00→19:35)
[2017-09-22 09:18] LABS: Alanine Aminotransferase 18 U/L (13-56); Alkaline Phosphatase 20 U/L (45-117); Anion Gap 9 (5-15); Aspartate Aminotransferase 21 U/L (15-37); BUN/Creatinine Ratio 38.8; Bilirubin, Total 0.3 mg/dL (0.2-1.0); Blood Urea Nitrogen 38 mg/dL (7-18); Calcium 7.8 mg/dL (8.5-10.1); Carbon Dioxide 20 mmol/L (21-32); Chloride 108 mmol/L (98-107); GFR African American 70 mL/min; GFR Non-African American 58 mL/min; Glucose 128 mg/dL (74-106); Potassium 5.1 mmol/L (3.5-5.1); Sodium 137 mmol/L (136-145)
[2017-09-22 09:19] LABS: Albumin 1.9 g/dL (3.4-5.0); Magnesium 2.3 mg/dL (1.6-2.6); Total Protein 5.6 g/dL (6.4-8.2)
[2017-09-22 09:38] LABS: Basophils # (auto) 0 uL; Basophils % (auto) 0.2 % (0.0-2.0); Eosinophils # (auto) 0 uL; Hematocrit 33.6 % (36.0-46.0); Hemoglobin 10.7 g/dL (12.2-16.2); Lymphocytes # (auto) 0.5 uL; Lymphocytes % (auto) 4.9 % (10.0-50.0); Mean Corpuscular Hemoglobin 27.4 pg (28.0-32.0); Mean Corpuscular Volume 85.7 fL (80.0-100.0); Monocytes % (auto) 9.1 % (0.0-12.0); Neutrophils # (auto) 9.2 uL; Neutrophils % (auto) 85.8 % (37.0-80.0); Nucleated Red Blood Cells % 0.1 %; Platelet Count (auto) 138 10^3/uL (140-450); Red Blood Cells 3.92 10^6/uL (4.0-5.20); Red Cell Distribution Width 17.5 % (11.8-14.3); White Blood Cell 10.8 10^3/uL (4.4-10.8)
[2017-09-22] MEDS: TRIAMTERENE/HCTZ 37.5/25 MG CAP PO SCH (10:00)
[2017-09-22] MEDS: MULTIPLE VITAMIN TAB NG SCH (10:23)
[2017-09-22] MEDS: PANTOPRAZOLE 40 MG/10 ML VIAL IV SCH ×2 (10:24→21:55)
[2017-09-22] MEDS: SODIUM CHLOR 0.9% PF (SALINE LOCK) 10ML VIAL/SYR IV SCH ×2 (10:32→21:56)
[2017-09-22 13:00] VITALS: BP 130/70
[2017-09-22 17:00] VITALS: BP 134/72
[2017-09-22] MEDS ORDERED: [UNRECOGNIZED DRUG - OTHER] IV NR ×11 (20:00)
[2017-09-22] MEDS ORDERED: FAT EMULSION IV NR ×11 (20:00)
[2017-09-22] MEDS ORDERED: SODIUM ACETATE IV NR ×11 (20:00)
[2017-09-22] MEDS ORDERED: POTASSIUM CHLORIDE IV NR ×11 (20:00)
[2017-09-22] MEDS: ATORVASTATIN 20 MG TAB NG SCH (21:56)
[2017-09-22 22:28] VITALS: BP 131/56
[2017-09-23] MEDS: ACCU-CHEK COMFORT CURVE STRIP VI SCH ×3 (00:15→11:56)
[2017-09-23] MEDS: SODIUM CHLORIDE 0.9% 1,000 ML IV SCH (02:53)
[2017-09-23 05:11] VITALS: BP 133/62
[2017-09-23 05:42] LABS: Basophils # (auto) 0 uL; Basophils % (auto) 0.4 % (0.0-2.0); Eosinophils # (auto) 0.1 uL; Eosinophils % (auto) 1.5 % (0.0-7.0); Hematocrit 31.6 % (36.0-46.0); Hemoglobin 10.4 g/dL (12.2-16.2); Lymphocytes # (auto) 0.6 uL; Lymphocytes % (auto) 9.9 % (10.0-50.0); Mean Corpuscular Volume 84.9 fL (80.0-100.0); Monocytes # (auto) 0.8 uL; Monocytes % (auto) 11.7 % (0.0-12.0); Neutrophils # (auto) 4.9 uL; Neutrophils % (auto) 76.5 % (37.0-80.0); Platelet Count (auto) 125 10^3/uL (140-450); Red Blood Cells 3.72 10^6/uL (4.0-5.20); Red Cell Distribution Width 17.2 % (11.8-14.3); White Blood Cell 6.5 10^3/uL (4.4-10.8)
[2017-09-23] MEDS: ISOSORBIDE DINITRATE 10 MG TAB NG SCH ×2 (06:00→12:00)
[2017-09-23] MEDS: InsuLIN REG 1unit/0.01ml Soln (100units/ml) SC SCH ×3 (06:00→11:55)
[2017-09-23] MEDS: METOCLOPRAMIDE HCL 5MG/ml INJ 2ml VIAL IV SCH ×2 (06:20→14:00)
[2017-09-23 06:32] LABS: Bilirubin, Total 0.4 mg/dL (0.2-1.0); Calcium 7.7 mg/dL (8.5-10.1); Magnesium 2.2 mg/dL (1.6-2.6); Phosphorus 3.8 mg/dL (2.5-4.90); Potassium 4.1 mmol/L (3.5-5.1); Total Protein 5.4 g/dL (6.4-8.2)
[2017-09-23 08:00] VITALS: BP 122/63
[2017-09-23] MEDS: BOOST PLUS 8 ounce PO SCH ×2 (08:00→12:00)
[2017-09-23 08:14] VITALS: BP 122/63
[2017-09-23] MEDS: TRIAMTERENE/HCTZ 37.5/25 MG CAP PO SCH (09:47)
[2017-09-23] MEDS: PANTOPRAZOLE 40 MG/10 ML VIAL IV SCH (09:47)
[2017-09-23] MEDS: SODIUM CHLOR 0.9% PF (SALINE LOCK) 10ML VIAL/SYR IV SCH (09:56)
[2017-09-23 12:25] VITALS: BP 144/65
[2017-09-23 14:30] VITALS: BP 122/63
[2017-09-23] MEDS ORDERED: [UNRECOGNIZED DRUG - OTHER] IV NR ×11 (20:00)
[2017-09-23] MEDS ORDERED: POTASSIUM ACETATE IV NR ×11 (20:00)
[2017-09-23] MEDS ORDERED: SODIUM ACETATE IV NR ×11 (20:00)
[2017-09-23] MEDS ORDERED: FAT EMULSION IV NR ×11 (20:00)
== END 2017-09-23 16:30 | disposition hospice, home (50) | DRG 327 ==
LOC: ER 09:04 → TELE 09:05 → TELE-WESTW 14:14
PROVIDERS: ADMIT Internal Medicine; ATTEND Family Medicine
PROC: 0D968ZZ Drainage of Stomach, Via Natural or Artificial Opening Endoscopic (ICD-10-PCS; principal; 2017-09-09 09:35)
PROC: 02HV33Z Insertion of Infusion Device into Superior Vena Cava, Percutaneous Approach (ICD-10-PCS; 2017-09-18)
PROC: 0DBA8ZX Excision of Jejunum, Via Natural or Artificial Opening Endoscopic, Diagnostic (ICD-10-PCS; 2017-09-20)
PROC: 0HB7XZX Excision of Abdomen Skin, External Approach, Diagnostic (ICD-10-PCS; 2017-09-21)
PROC: 0WBF0ZX Excision of Abdominal Wall, Open Approach, Diagnostic (ICD-10-PCS; 2017-09-21)
DX: C76.2 Malignant neoplasm of abdomen (principal); E44.0 Moderate protein-calorie malnutrition; E87.1 Hypo-osmolality and hyponatremia; K31.5 Obstruction of duodenum; K22.10 Ulcer of esophagus without bleeding; K56.7 Ileus, unspecified; N17.9 Acute kidney failure, unspecified; R13.10 Dysphagia, unspecified; E86.1 Hypovolemia; N18.3 Chronic kidney disease, stage 3 (moderate); D64.9 Anemia, unspecified; E87.6 Hypokalemia; I12.9 Hypertensive chronic kidney disease with stage 1 through stage 4 chronic kidney disease, or unspecified chronic kidney disease; I25.10 Atherosclerotic heart disease of native coronary artery without angina pectoris; K29.70 Gastritis, unspecified, without bleeding; R74.8 Abnormal levels of other serum enzymes; R13.19 Other dysphagia; K59.00 Constipation, unspecified; K52.9 Noninfective gastroenteritis and colitis, unspecified; R68.81 Early satiety; K66.0 Peritoneal adhesions (postprocedural) (postinfection); E78.00 Pure hypercholesterolemia, unspecified; Z51.5 Encounter for palliative care; Z82.49 Family history of ischemic heart disease and other diseases of the circulatory system; Z90.49 Acquired absence of other specified parts of digestive tract; Z90.710 Acquired absence of both cervix and uterus; Z68.29 Body mass index [BMI] 29.0-29.9, adult
CPT/HCPCS: 36415; 36569; 71045; 71260; 74021; 74176; 74177; 74250; 80048; 80053; 81001; 82040; 82962; 83735; 84100; 84478; 84484; 85007; 85025; 85027; 85610; 85730; 86850; 86900; 86901; 87086; 93005; 93306; 96372; C9113; J0690; J1815; J1885; J2250; J2405